=== PATIENT | male | born 1950 | race Caucasian/White ===

== ENCOUNTER → 2024-12-13 | Outpatient (CLI) | payer MEDICARE, BC, SELFPAY ==
--- NOTE | 2024-12-13 16:37 | XR_ITS ---
Examination: Shoulder,left, 3 views Technique: Shoulder AP internal rotation, AP external rotation, Y view shoulder, 3 views Exam date and time :December 13, 2024 1750 hours INDICATIONS: Patient has fallen several times over the years with injury to left shoulder, more prominent left shoulder pain for last 3 weeks. FINDINGS: Moderate osteopenia. Mild osteoarthritis glenohumeral joint Mild calcific tendinitis. No fractures or dislocation IMPRESSION: Mild osteoarthritis glenohumeral joint Mild left shoulder calcific tendinitis
--- NOTE | 2024-12-13 16:37 | XR_ITS ---
Examination: Lumbar spine, 5 views Technique: Lumbar spine AP, lateral, coned lateral lower lumbar spine, bilateral obliques 5 views Exam date and time: December 13, 2024 1750 hours INDICATIONS: Lower back pain beginning 3 weeks ago FINDINGS: Thoracolumbar levoscoliosis 10 degrees Moderate diffuse facet arthropathy No lumbar fracture Mild chronic wedging L2 Prominent lumbar spondylosis Diffuse moderate to advanced lumbar degenerative disc disease, most prominent at L5-S1 IMPRESSION: Diffuse moderate to advanced lumbar degenerative disc disease, most prominent at L5-S1
--- NOTE | 2024-12-13 16:37 | XR_ITS ---
Examination: Knee bilateral, 6 views Technique: Knee AP, lateral, oblique is the total 6 views Date and time of exam: December 13, 2024 1750 hours INDICATIONS: Knee pain months. FINDINGS: Moderate osteopenia Bilateral mild osteoarthritis medial and patellofemoral joints No fractures No dislocations Faint meniscus calcification IMPRESSION: Mild bilateral osteoarthritis
--- NOTE | 2024-12-13 16:37 | XR_ITS ---
Examination: Bilateral hips, AP pelvis, 5 views Technique: AP, lateral views both hips, AP pelvis, 5 views Exam date and time: December 13, 2024 1750 hours INDICATIONS: Bilateral hip pain months. FINDINGS: Moderate osteopenia. Mild bilateral hip osteoarthritis No right or left hip fracture or dislocation No avascular necrosis Bones of the pelvis intact IMPRESSION: Mild bilateral hip osteoarthritis
== END | disposition home or self-care (01) ==
PROVIDERS: PCP Internal Medicine; Referring Provider Internal Medicine; Visit Provider Internal Medicine
DX: M51.360 Other intervertebral disc degeneration, lumbar region with discogenic back pain only (principal); M51.370 Other intervertebral disc degeneration, lumbosacral region with discogenic back pain only; M16.0 Bilateral primary osteoarthritis of hip; M17.0 Bilateral primary osteoarthritis of knee
CPT/HCPCS: 72110; 73030; 73521; 73562

== ENCOUNTER → 2024-12-15 | Outpatient (CLI) | payer MEDICARE, BC, SELFPAY ==
--- NOTE | 2024-12-15 14:23 | XR_ITS ---
Examination: CT chest, without intravenous contrast. Sagittal and coronal 2-D reconstructions. Exam date and time: December 15, 2024 1518 hours INDICATIONS: Nicotine dependence, smoking history several years chronic shortness of breath CTDI:vol (mGy) 19.7 DLP: (mGycm) 750 Technique: Multiple 3.0 mm axial sections of the chest to been obtained. Bone and lung density settings are obtained. Sagittal and coronal 2-D reconstructions have been obtained. Low dose protocols were performed. One or more of the following dose reduction techniques were used; automated exposure control, adjustment of the mA and/or KV according to patient size, use of iterative reconstruction technique. Findings: AP dimension ascending thoracic aorta 3.7 cm Pulmonary artery segments are not enlarged. No paratracheal tracheobronchial or bronchopulmonary adenopathy. 4 mm solid pulmonary nodule right mid lung image 36 3 mm pulmonary nodule left lower lobe image 60 4 mm pulmonary nodule in left lower lobe image 62 Fatty liver No gallstones Spleen not enlarged No adrenal mass Splenomegaly 16 cm IMPRESSION: Noncalcified pulmonary nodules as above, which this study as baseline consider 6 month follow-up with CT chest without contrast Significant splenomegaly
== END | disposition home or self-care (01) ==
PROVIDERS: PCP Internal Medicine; Referring Provider Internal Medicine; Visit Provider Internal Medicine
DX: Z12.2 Encounter for screening for malignant neoplasm of respiratory organs (principal); R91.8 Other nonspecific abnormal finding of lung field; R16.1 Splenomegaly, not elsewhere classified; F17.210 Nicotine dependence, cigarettes, uncomplicated
CPT/HCPCS: 71271

== ENCOUNTER → 2024-12-21 | Outpatient (CLI) | payer MEDICARE, BC, SELFPAY ==
--- NOTE | 2024-12-21 14:15 | XR_ITS ---
Examination: MRI lumbar spine without contrast Date and time of exam: December 21, 2024 1545 hours INDICATIONS: Several falls in the last 3 months with loss of balance, injury to the lower back, back pain Technique: Multiple MRI axial and sagittal sections lumbar spine. Sagittal T2-weighted images, TR 3500, TE 118 T1 weighted transverse sections, TR 688 T8.5, T2-weighted sagittal sections T1 weighted sagittal sections TR 621, TE 30 T2 axial sections, TR 4, 190, TE 84. Findings: Adequate alignment lumbar vertebral bodies on the lateral view Mild old wedging L2 No acute lumbar fracture Moderate lumbar spondylosis Disc desiccation L5-S1 No spondylolisthesis L5-S1 no disc protrusion L4-L5 4 mm left 3 mm right foraminal disc bulges no ganglionic compression L3-L4 5 mm left 2 mm right foraminal disc bulges no ganglionic compression L2-L3 no disc protrusion L1-L2 no disc protrusion IMPRESSION: No acute lumbar fracture No significant acquired spinal stenosis
== END | disposition home or self-care (01) ==
LOC: SMRI 13:55
PROVIDERS: PCP Internal Medicine; Referring Provider Internal Medicine; Visit Provider Internal Medicine
DX: S39.92XA Unspecified injury of lower back, initial encounter (principal); W19.XXXA Unspecified fall, initial encounter
CPT/HCPCS: 72148

== ENCOUNTER → 2025-01-02 | Outpatient (CLI) | payer MEDICARE, BC, SELFPAY ==
--- NOTE | 2025-01-02 12:00 | XR_ITS ---
Examination: MRI of brain without intravenous contrast. MRI brain with intravenous contrast. Date and time of exam:January 03, 2020 5:12 PM INDICATIONS: Weakness head pain multiple falls loss of function in the legs 3 months Technique: Multiple axial and sagittal images of the brain to been obtained. Siemens high-resolution 1.52 Lucero short bore scanner utilized. Sagittal sections, T1 weighted images, TR 500, TE 14, are performed. Axial sections proton-density and T2-weighted images have been obtained. Inversion recovery axial images, TR 9260, TE 111, TR 2500. Diffusion weighted images, axial sections, TR 4800, TE 128, B value 1000. Axial sections, ADC map, TR 4800, TE 128. Axial and coronal images were also obtained post 20 cc gadolinium administered intravenously. Findings:: Enlargement of the sella turcica is not present. The optic chiasm and infundibular stalk are not remarkable. There is no localized enlargement of the medulla or araceli. Fourth ventricle and cerebellar tonsils appear normal in position. No subacute area of hemorrhage density is seen. Fourth ventricle is midline. Mass in the cerebellopontine angle region is not evident. 7th and 8th nerve complexes exhibit symmetry Globes are symmetrical Orbital musculature including medial lateral rectus muscles do not exhibit abnormality Increased white matter signal is mild Effacement of the cortical sulcal markings is not identified. Mass effect upon the ventricular system is not identified. Diffusion-weighted images demonstrate no focus of restricted diffusion Contrast images demonstrate 7 mm pituitary microadenoma Impression: Negative for acute hemorrhage mass effect or midline shift No acute infarct 7 mm pituitary microadenoma
== END | disposition home or self-care (01) ==
LOC: SMRI 11:50
PROVIDERS: PCP Internal Medicine; Referring Provider Internal Medicine; Visit Provider Internal Medicine
DX: D35.2 Benign neoplasm of pituitary gland (principal); C71.9 Malignant neoplasm of brain, unspecified
CPT/HCPCS: 70553; A9579